=== PATIENT | male | born 1955 ===

== ENCOUNTER 2020-12-05 08:37 | Inpatient (IN) ==
[2020-12-05] MEDS ORDERED: Dextrose 50% Syringe 50 ml 25 GM/50 ML SYRINGE IV PUSH PRN (14:26)
[2020-12-05] MEDS: Amoxicillin/Clavul ORALSYR 80 MG/ML (400 MG/5 ML) G TUBE SCH (20:50)
[2020-12-05] MEDS: Nystatin SUSPENSION 100,000 UNITS/ML UDC PO SCH (21:06)
[2020-12-06 05:53] LABS: ABS Eosinophils 0.1 10^3/ul (0-0.6); ABS Lymphocytes 2.2 10^3/ul (1.0-4.8); ABS Monocytes 1.2 10^3/ul (0-0.8); ABS Neutrophils 5.1 10^3/ul (1.5-7.7); Eosinophil % 1.2 %; Hematocrit 42 % (42-52); Hemoglobin 14.1 g/dL (14.0-18.0); Lymphocyte % 25.2 %; Mean Corpuscular HGB Conc 33 g/dL (31-36); Mean Corpuscular Hemoglobin 31 pg (27-31); Mean Corpuscular Volume 94 fL (80-94); Mean Platelet Volume 8.1 fL (7.4-10.4); Platelet Count 258 10^3/uL (150-450); Red Blood Count 4.54 10^6 /uL (4.18-5.48); Red Cell Distribution Width 15 % (10-15); White Blood Count 8.7 10^3/uL (3.5-10.8)
[2020-12-06 06:08] LABS: Albumin 3.4 g/dL (3.2-5.2); Albumin/Globulin Ratio 0.8 (1-3); Calcium 9.3 mg/dL (8.6-10.3); EGFR African American 75.2 (>60); EGFR Non-African American 62.1 (>60); Globulin 4.3 g/dL (2-4); Potassium 4.4 mmol/L (3.5-5.0); Total Bilirubin 0.3 mg/dL (0.2-1.0); Total Protein 7.7 g/dL (6.4-8.9)
[2020-12-06] MEDS: Nystatin SUSPENSION 100,000 UNITS/ML UDC PO SCH ×4 (09:29→22:39)
[2020-12-06] MEDS: Amoxicillin/Clavul ORALSYR 80 MG/ML (400 MG/5 ML) G TUBE SCH ×2 (09:33→22:39)
[2020-12-06] MEDS: COBICISTAT PO SCH (14:51)
[2020-12-06] MEDS: DARUNAVIR PO SCH (14:51)
[2020-12-06] MEDS: PTO: Bictegravir/Emtricit/Tenofov 1 TABLET PO SCH (14:51)
[2020-12-06] MEDS: Heparin 5000 UNITS/ML 1 mL VIAL SUBCUT SCH (22:39)
[2020-12-07] MEDS: Nystatin SUSPENSION 100,000 UNITS/ML UDC PO SCH ×4 (07:30→22:13)
[2020-12-07] MEDS: PTO: Bictegravir/Emtricit/Tenofov 1 TABLET PO SCH (07:32)
[2020-12-07] MEDS: COBICISTAT PO SCH (07:33)
[2020-12-07] MEDS: DARUNAVIR PO SCH (07:33)
[2020-12-07] MEDS: Amoxicillin/Clavul ORALSYR 80 MG/ML (400 MG/5 ML) G TUBE SCH ×2 (07:38→20:09)
[2020-12-07] MEDS: Heparin 5000 UNITS/ML 1 mL VIAL SUBCUT SCH ×2 (07:38→20:19)
[2020-12-08] MEDS: Heparin 5000 UNITS/ML 1 mL VIAL SUBCUT SCH ×2 (08:46→21:21)
[2020-12-08] MEDS: Nystatin SUSPENSION 100,000 UNITS/ML UDC PO SCH ×4 (08:46→22:01)
[2020-12-08] MEDS: COBICISTAT PO SCH (08:54)
[2020-12-08] MEDS: Amoxicillin/Clavul ORALSYR 80 MG/ML (400 MG/5 ML) G TUBE SCH ×2 (08:54→21:52)
[2020-12-08] MEDS: PTO: Bictegravir/Emtricit/Tenofov 1 TABLET PO SCH (08:54)
[2020-12-08] MEDS: DARUNAVIR PO SCH (08:54)
[2020-12-09] MEDS: Heparin 5000 UNITS/ML 1 mL VIAL SUBCUT SCH ×2 (09:16→20:46)
[2020-12-09] MEDS: Nicotine PATCH 14 MG/24 HR PATCH TRANSDERM SCH (09:16)
[2020-12-09] MEDS: Amoxicillin/Clavul ORALSYR 80 MG/ML (400 MG/5 ML) G TUBE SCH ×2 (09:17→20:50)
[2020-12-09] MEDS: Nystatin SUSPENSION 100,000 UNITS/ML UDC PO SCH ×4 (09:18→20:53)
[2020-12-09] MEDS: PTO: Bictegravir/Emtricit/Tenofov 1 TABLET PO SCH (09:40)
[2020-12-09] MEDS: COBICISTAT PO SCH (09:40)
[2020-12-09] MEDS: DARUNAVIR PO SCH (09:40)
[2020-12-10] MEDS: Heparin 5000 UNITS/ML 1 mL VIAL SUBCUT SCH ×2 (09:47→21:05)
[2020-12-10] MEDS: Amoxicillin/Clavul ORALSYR 80 MG/ML (400 MG/5 ML) G TUBE SCH ×2 (09:47→21:07)
[2020-12-10] MEDS: Nicotine PATCH 14 MG/24 HR PATCH TRANSDERM SCH (09:47)
[2020-12-10] MEDS: COBICISTAT PO SCH (09:48)
[2020-12-10] MEDS: PTO: Bictegravir/Emtricit/Tenofov 1 TABLET PO SCH (09:48)
[2020-12-10] MEDS: Nystatin SUSPENSION 100,000 UNITS/ML UDC PO SCH ×4 (09:48→21:20)
[2020-12-10] MEDS: DARUNAVIR PO SCH (09:48)
[2020-12-11] MEDS: Heparin 5000 UNITS/ML 1 mL VIAL SUBCUT SCH ×2 (09:46→20:57)
[2020-12-11] MEDS: Nystatin SUSPENSION 100,000 UNITS/ML UDC PO SCH ×4 (09:46→21:01)
[2020-12-11] MEDS: Nicotine PATCH 14 MG/24 HR PATCH TRANSDERM SCH (09:47)
[2020-12-11] MEDS: Amoxicillin/Clavul ORALSYR 80 MG/ML (400 MG/5 ML) G TUBE SCH ×2 (09:52→20:51)
[2020-12-11] MEDS: DARUNAVIR PO SCH (10:49)
[2020-12-11] MEDS: COBICISTAT PO SCH (10:49)
[2020-12-11] MEDS: PTO: Bictegravir/Emtricit/Tenofov 1 TABLET PO SCH (10:49)
[2020-12-12] MEDS: Heparin 5000 UNITS/ML 1 mL VIAL SUBCUT SCH ×2 (09:26→21:27)
[2020-12-12] MEDS: Nystatin SUSPENSION 100,000 UNITS/ML UDC PO SCH ×3 (09:26→18:00)
[2020-12-12] MEDS: Nicotine PATCH 14 MG/24 HR PATCH TRANSDERM SCH (09:26)
[2020-12-12] MEDS: Amoxicillin/Clavul ORALSYR 80 MG/ML (400 MG/5 ML) G TUBE SCH ×2 (09:28→21:27)
[2020-12-12] MEDS: COBICISTAT PO SCH (09:29)
[2020-12-12] MEDS: DARUNAVIR PO SCH (09:29)
[2020-12-12] MEDS: PTO: Bictegravir/Emtricit/Tenofov 1 TABLET PO SCH (09:29)
[2020-12-13 07:02] LABS: ABS Basophils 0.1 10^3/ul (0-0.2); ABS Eosinophils 0.2 10^3/ul (0-0.6); ABS Lymphocytes 2.5 10^3/ul (1.0-4.8); ABS Neutrophils 3.5 10^3/ul (1.5-7.7); Eosinophil % 2.2 %; Hematocrit 42 % (42-52); Hemoglobin 14.2 g/dL (14.0-18.0); Lymphocyte % 34.5 %; Mean Corpuscular HGB Conc 34 g/dL (31-36); Mean Corpuscular Hemoglobin 31 pg (27-31); Mean Corpuscular Volume 93 fL (80-94); Mean Platelet Volume 8.4 fL (7.4-10.4); Platelet Count 245 10^3/uL (150-450); Red Blood Count 4.53 10^6 /uL (4.18-5.48); Red Cell Distribution Width 15 % (10-15); White Blood Count 7.2 10^3/uL (3.5-10.8)
[2020-12-13 07:19] LABS: Albumin 3.5 g/dL (3.2-5.2); Albumin/Globulin Ratio 0.9 (1-3); Calcium 9.8 mg/dL (8.6-10.3); EGFR African American 104.1 (>60); EGFR Non-African American 86.1 (>60); Potassium 4.4 mmol/L (3.5-5.0); Total Bilirubin 0.3 mg/dL (0.2-1.0); Total Protein 7.5 g/dL (6.4-8.9)
[2020-12-13] MEDS: PTO: Bictegravir/Emtricit/Tenofov 1 TABLET PO SCH (09:13)
[2020-12-13] MEDS: COBICISTAT PO SCH (09:14)
[2020-12-13] MEDS: Heparin 5000 UNITS/ML 1 mL VIAL SUBCUT SCH ×2 (09:14→20:59)
[2020-12-13] MEDS: DARUNAVIR PO SCH (09:14)
[2020-12-13] MEDS: Nicotine PATCH 14 MG/24 HR PATCH TRANSDERM SCH (09:15)
[2020-12-13] MEDS: Docusate LIQ 100 MG/10 ML UDC G TUBE PRN (09:18)
[2020-12-14] MEDS: Nicotine PATCH 14 MG/24 HR PATCH TRANSDERM SCH (09:41)
[2020-12-14] MEDS: Heparin 5000 UNITS/ML 1 mL VIAL SUBCUT SCH ×2 (09:42→21:19)
[2020-12-14] MEDS: DARUNAVIR PO SCH (09:49)
[2020-12-14] MEDS: COBICISTAT PO SCH (09:49)
[2020-12-14] MEDS: PTO: Bictegravir/Emtricit/Tenofov 1 TABLET PO SCH (09:49)
[2020-12-14] MEDS: Docusate LIQ 100 MG/10 ML UDC G TUBE PRN (21:13)
[2020-12-15] MEDS: Heparin 5000 UNITS/ML 1 mL VIAL SUBCUT SCH ×2 (08:14→21:59)
[2020-12-15] MEDS: Nicotine PATCH 14 MG/24 HR PATCH TRANSDERM SCH (08:16)
[2020-12-15] MEDS: COBICISTAT PO SCH (08:18)
[2020-12-15] MEDS: DARUNAVIR PO SCH (08:18)
[2020-12-15] MEDS: PTO: Bictegravir/Emtricit/Tenofov 1 TABLET PO SCH (08:18)
[2020-12-15] MEDS: Docusate LIQ 100 MG/10 ML UDC G TUBE PRN (22:04)
[2020-12-16] MEDS: Nicotine PATCH 14 MG/24 HR PATCH TRANSDERM SCH (10:00)
[2020-12-16] MEDS: Heparin 5000 UNITS/ML 1 mL VIAL SUBCUT SCH ×2 (10:00→20:20)
[2020-12-16] MEDS: COBICISTAT PO SCH (10:01)
[2020-12-16] MEDS: DARUNAVIR PO SCH (10:01)
[2020-12-16] MEDS: PTO: Bictegravir/Emtricit/Tenofov 1 TABLET PO SCH (10:01)
[2020-12-16] MEDS: Docusate LIQ 100 MG/10 ML UDC G TUBE PRN (20:16)
[2020-12-17] MEDS: PTO: Bictegravir/Emtricit/Tenofov 1 TABLET PO SCH (09:30)
[2020-12-17] MEDS: COBICISTAT PO SCH (09:30)
[2020-12-17] MEDS: DARUNAVIR PO SCH (09:30)
[2020-12-17] MEDS: Nicotine PATCH 14 MG/24 HR PATCH TRANSDERM SCH (09:31)
[2020-12-17] MEDS: Heparin 5000 UNITS/ML 1 mL VIAL SUBCUT SCH ×2 (09:34→21:04)
[2020-12-18] MEDS: DARUNAVIR PO SCH (11:22)
[2020-12-18] MEDS: Nicotine PATCH 14 MG/24 HR PATCH TRANSDERM SCH (11:22)
[2020-12-18] MEDS: COBICISTAT PO SCH (11:22)
[2020-12-18] MEDS: Heparin 5000 UNITS/ML 1 mL VIAL SUBCUT SCH ×2 (11:22→20:44)
[2020-12-18] MEDS: PTO: Bictegravir/Emtricit/Tenofov 1 TABLET PO SCH (11:22)
[2020-12-19] MEDS: COBICISTAT PO SCH (11:48)
[2020-12-19] MEDS: PTO: Bictegravir/Emtricit/Tenofov 1 TABLET PO SCH (11:48)
[2020-12-19] MEDS: Heparin 5000 UNITS/ML 1 mL VIAL SUBCUT SCH ×2 (11:48→21:09)
[2020-12-19] MEDS: DARUNAVIR PO SCH (11:48)
[2020-12-19] MEDS: Nicotine PATCH 14 MG/24 HR PATCH TRANSDERM SCH (11:49)
[2020-12-20 06:06] LABS: ABS Basophils 0.1 10^3/ul (0-0.2); ABS Eosinophils 0.2 10^3/ul (0-0.6); ABS Lymphocytes 2.3 10^3/ul (1.0-4.8); ABS Monocytes 0.9 10^3/ul (0-0.8); ABS Neutrophils 3.3 10^3/ul (1.5-7.7); Eosinophil % 2.4 %; Hematocrit 41 % (42-52); Hemoglobin 13.4 g/dL (14.0-18.0); Lymphocyte % 33.9 %; Mean Corpuscular HGB Conc 33 g/dL (31-36); Mean Corpuscular Hemoglobin 31 pg (27-31); Mean Corpuscular Volume 94 fL (80-94); Mean Platelet Volume 8.5 fL (7.4-10.4); Platelet Count 206 10^3/uL (150-450); Red Blood Count 4.32 10^6 /uL (4.18-5.48); Red Cell Distribution Width 15 % (10-15); White Blood Count 6.8 10^3/uL (3.5-10.8)
[2020-12-20 06:26] LABS: Albumin 3.6 g/dL (3.2-5.2); Calcium 9.8 mg/dL (8.6-10.3); EGFR African American 96.6 (>60); EGFR Non-African American 79.8 (>60); Globulin 3.5 g/dL (2-4); Potassium 4.4 mmol/L (3.5-5.0); Total Bilirubin 0.3 mg/dL (0.2-1.0); Total Protein 7.1 g/dL (6.4-8.9)
[2020-12-20] MEDS: Heparin 5000 UNITS/ML 1 mL VIAL SUBCUT SCH ×2 (09:28→21:36)
[2020-12-20] MEDS: Nicotine PATCH 14 MG/24 HR PATCH TRANSDERM SCH (09:29)
[2020-12-20] MEDS: COBICISTAT PO SCH (09:32)
[2020-12-20] MEDS: PTO: Bictegravir/Emtricit/Tenofov 1 TABLET PO SCH (09:32)
[2020-12-20] MEDS: DARUNAVIR PO SCH (09:32)
[2020-12-20] MEDS: Docusate LIQ 100 MG/10 ML UDC G TUBE PRN (21:36)
[2020-12-21] MEDS: Heparin 5000 UNITS/ML 1 mL VIAL SUBCUT SCH ×2 (10:20→21:44)
[2020-12-21] MEDS: PTO: Bictegravir/Emtricit/Tenofov 1 TABLET PO SCH (10:20)
[2020-12-21] MEDS: DARUNAVIR PO SCH (10:21)
[2020-12-21] MEDS: COBICISTAT PO SCH (10:21)
[2020-12-21] MEDS: Nicotine PATCH 14 MG/24 HR PATCH TRANSDERM SCH (10:21)
[2020-12-21] MEDS: Docusate LIQ 100 MG/10 ML UDC G TUBE PRN (21:46)
[2020-12-22] MEDS: PTO: Bictegravir/Emtricit/Tenofov 1 TABLET PO SCH (10:23)
[2020-12-22] MEDS: DARUNAVIR PO SCH (10:23)
[2020-12-22] MEDS: COBICISTAT PO SCH (10:23)
[2020-12-22] MEDS: Nicotine PATCH 14 MG/24 HR PATCH TRANSDERM SCH (10:23)
[2020-12-22] MEDS: Heparin 5000 UNITS/ML 1 mL VIAL SUBCUT SCH ×2 (10:23→21:30)
[2020-12-23] MEDS: PTO: Bictegravir/Emtricit/Tenofov 1 TABLET PO SCH (09:17)
[2020-12-23] MEDS: COBICISTAT PO SCH (09:17)
[2020-12-23] MEDS: DARUNAVIR PO SCH (09:17)
[2020-12-23] MEDS: Heparin 5000 UNITS/ML 1 mL VIAL SUBCUT SCH ×2 (09:17→20:46)
[2020-12-23] MEDS: Nicotine PATCH 14 MG/24 HR PATCH TRANSDERM SCH (09:18)
[2020-12-24] MEDS: DARUNAVIR PO SCH (11:26)
[2020-12-24] MEDS: PTO: Bictegravir/Emtricit/Tenofov 1 TABLET PO SCH (11:26)
[2020-12-24] MEDS: COBICISTAT PO SCH (11:26)
[2020-12-24] MEDS: Heparin 5000 UNITS/ML 1 mL VIAL SUBCUT SCH ×2 (11:26→21:25)
[2020-12-24] MEDS: Nicotine PATCH 14 MG/24 HR PATCH TRANSDERM SCH (11:27)
[2020-12-24] MEDS: Ondansetron ODT 4 mg TAB 4 MG TAB PO PRN (19:48)
[2020-12-25] MEDS: COBICISTAT PO SCH (10:26)
[2020-12-25] MEDS: Heparin 5000 UNITS/ML 1 mL VIAL SUBCUT SCH ×2 (10:26→21:20)
[2020-12-25] MEDS: DARUNAVIR PO SCH (10:26)
[2020-12-25] MEDS: PTO: Bictegravir/Emtricit/Tenofov 1 TABLET PO SCH (10:26)
[2020-12-25] MEDS: Nicotine PATCH 14 MG/24 HR PATCH TRANSDERM SCH (10:28)
[2020-12-26] MEDS: COBICISTAT PO SCH (09:48)
[2020-12-26] MEDS: Heparin 5000 UNITS/ML 1 mL VIAL SUBCUT SCH ×2 (09:48→20:58)
[2020-12-26] MEDS: DARUNAVIR PO SCH (09:48)
[2020-12-26] MEDS: Nicotine PATCH 14 MG/24 HR PATCH TRANSDERM SCH (09:48)
[2020-12-26] MEDS: PTO: Bictegravir/Emtricit/Tenofov 1 TABLET PO SCH (09:48)
[2020-12-26] MEDS: Ondansetron ODT 4 mg TAB 4 MG TAB PO PRN (14:14)
[2020-12-27 06:37] LABS: ABS Eosinophils 0.2 10^3/ul (0-0.6); ABS Neutrophils 4.4 10^3/ul (1.5-7.7); Eosinophil % 2.5 %; Hematocrit 38 % (42-52); Hemoglobin 12.7 g/dL (14.0-18.0); Lymphocyte % 26.3 %; Mean Corpuscular HGB Conc 34 g/dL (31-36); Mean Corpuscular Hemoglobin 32 pg (27-31); Mean Corpuscular Volume 93 fL (80-94); Mean Platelet Volume 8.4 fL (7.4-10.4); Platelet Count 177 10^3/uL (150-450); Red Blood Count 4.03 10^6 /uL (4.18-5.48); Red Cell Distribution Width 16 % (10-15); White Blood Count 7.6 10^3/uL (3.5-10.8)
[2020-12-27 07:04] LABS: Albumin 3.3 g/dL (3.2-5.2); Albumin/Globulin Ratio 0.9 (1-3); Calcium 9.5 mg/dL (8.6-10.3); EGFR African American 112.9 (>60); EGFR Non-African American 93.3 (>60); Globulin 3.7 g/dL (2-4); Potassium 4.6 mmol/L (3.5-5.0); Total Bilirubin 0.3 mg/dL (0.2-1.0)
[2020-12-27] MEDS: Heparin 5000 UNITS/ML 1 mL VIAL SUBCUT SCH (10:55)
[2020-12-27] MEDS: Nicotine PATCH 14 MG/24 HR PATCH TRANSDERM SCH (10:55)
[2020-12-27] MEDS: COBICISTAT PO SCH (10:55)
[2020-12-27] MEDS: PTO: Bictegravir/Emtricit/Tenofov 1 TABLET PO SCH (10:55)
[2020-12-27] MEDS: DARUNAVIR PO SCH (10:55)
[2020-12-27] MEDS ORDERED: NS 0.9% 1000 ml BAG 1,000 ML IV ONE ×2 (15:35→18:03)
[2020-12-27] MEDS ORDERED: Piperacillin/Tazobac ADVAN 3.375 GM in NS 0.9% 100 ml BAG 100 ML IV ONE (15:36)
[2020-12-27] MEDS ORDERED: Zosyn per Pharmacy NOTE FOLLOW UP SCH (16:00)
[2020-12-27 16:04] LABS: ABS Lymphocytes 0.7 10^3/ul (1.0-4.8); ABS Monocytes 1.1 10^3/ul (0-0.8); ABS Neutrophils 10.7 10^3/ul (1.5-7.7); Eosinophil % 0.2 %; Hematocrit 38 % (42-52); Hemoglobin 12.7 g/dL (14.0-18.0); Lymphocyte % 5.7 %; Mean Corpuscular HGB Conc 34 g/dL (31-36); Mean Corpuscular Hemoglobin 31 pg (27-31); Mean Corpuscular Volume 93 fL (80-94); Mean Platelet Volume 8.2 fL (7.4-10.4); Platelet Count 181 10^3/uL (150-450); Red Blood Count 4.06 10^6 /uL (4.18-5.48); Red Cell Distribution Width 15 % (10-15); White Blood Count 12.5 10^3/uL (3.5-10.8)
[2020-12-27 16:30] VITALS: BP 151/77
[2020-12-27 16:32] LABS: Albumin 3.7 g/dL (3.2-5.2); Albumin/Globulin Ratio 0.9 (1-3); Calcium 9.7 mg/dL (8.6-10.3); EGFR Non-African American 81.8 (>60); Magnesium 1.6 mg/dL (1.9-2.7); Phosphorus 1.6 mg/dL (2.5-5.0); Potassium 4.5 mmol/L (3.5-5.0); Total Bilirubin 0.5 mg/dL (0.2-1.0); Total Protein 7.7 g/dL (6.4-8.9)
[2020-12-27 17:05] LABS: Urine Appearance Clear; Urine Bilirubin Negative (Negative); Urine Blood 1+ (Negative); Urine Color Yellow; Urine Glucose Negative (Negative); Urine Ketones Negative (Negative); Urine Nitrite Negative (Negative); Urine Protein Negative (Negative); Urine Specific Gravity 1.016 (1.002-1.030); Urine Urobilinogen Negative (Negative)
[2020-12-27 17:52] LABS: Urine Bacteria Absent (Absent); Urine Red Blood Cell Trace(0-2/hpf) (Absent); Urine White Blood Cell Absent (Absent)
[2020-12-27] MEDS ORDERED: Magnesium Sulfate 2 gm BAG 2 GM/50 ML BAG IVPB ONE (18:02)
[2020-12-27] MEDS ORDERED: NS 0.9% 1000 ml BAG 1,000 ML IV SCH ×2 (18:15→18:30)
[2020-12-27] MEDS ORDERED: Potassium Phosphate IV 15 MMOLE in NS 0.9% 250 ml 250 ML IVPB ONE (18:30)
[2020-12-27] MEDS ORDERED: ZOSYN 3.375 GM Q8H per EXTENDED INFUSION IV SCH (20:00)
== END 2020-12-27 18:31 | disposition short-term general hospital (02) | DRG 58 ==
LOC: PMRU 13:21 → MEDTELE 12-27 17:35
PROVIDERS: ADMIT Physical Medicine & Rehabilitation; ATTEND Physical Medicine & Rehabilitation

== ENCOUNTER 2020-12-27 18:23 | Inpatient (IN) ==
[2020-12-27] MEDS ORDERED: NS 0.9% 1000 ml BAG 1,000 ML IV ONE (18:40)
[2020-12-27] MEDS ORDERED: Zosyn per Pharmacy NOTE FOLLOW UP SCH (19:00)
[2020-12-27] MEDS ORDERED: Docusate LIQ 100 MG/10 ML UDC G TUBE PRN (19:15)
[2020-12-27] MEDS ORDERED: Ondansetron 4 mg VIAL 2 MG/ML 2 ml VIAL IV PRN (19:18)
[2020-12-27] MEDS ORDERED: Albuterol 2.5mg/3 ml (0.083%) NEB.SOLN INH PRN (19:19)
[2020-12-27] MEDS ORDERED: Magnesium Sulfate 2 gm BAG 2 GM/50 ML BAG IVPB ONE (19:20)
[2020-12-27] MEDS ORDERED: Potassium Phosphate IV 15 MMOLE in NS 0.9% 250 ml 250 ML IVPB ONE (19:20)
[2020-12-27] MEDS ORDERED: Dextrose 50% Syringe 50 ml 25 GM/50 ML SYRINGE IV PUSH PRN (19:22)
[2020-12-27] MEDS ORDERED: Vancomycin 1,000 MG in NS 0.9% 250 ml 250 ML IVPB ONE (19:57)
[2020-12-27] MEDS ORDERED: Vancomycin per Pharmacy 1 EA NOTE FOLLOW UP SCH (20:00)
[2020-12-27] MEDS: Heparin 5000 UNITS/ML 1 mL VIAL SUBCUT SCH (20:27)
[2020-12-27] MEDS ORDERED: Vancomycin 1,250 MG IV x ONCE IVPB ONE (21:00)
[2020-12-27] MEDS: NS 0.9% 1000 ml BAG 1,000 ML IV SCH (22:21)
[2020-12-27] MEDS: Piperacillin/Tazobac ADVAN 3.375 GM in NS 0.9% 100 ml BAG 100 ML IV SCH (22:38)
[2020-12-28] MEDS: Piperacillin/Tazobac ADVAN 3.375 GM in NS 0.9% 100 ml BAG 100 ML IV SCH ×3 (04:08→21:38)
[2020-12-28] MEDS: Vancomycin 1,250 MG in NS 0.9% 250 ml 250 ML IVPB SCH ×2 (06:07→18:17)
[2020-12-28 06:52] LABS: ABS Basophils 0.1 10^3/ul (0-0.2); ABS Eosinophils 0.1 10^3/ul (0-0.6); ABS Lymphocytes 2.7 10^3/ul (1.0-4.8); ABS Monocytes 1.1 10^3/ul (0-0.8); ABS Neutrophils 11.7 10^3/ul (1.5-7.7); Eosinophil % 0.6 %; Hematocrit 36 % (42-52); Hemoglobin 12.2 g/dL (14.0-18.0); Lymphocyte % 17.3 %; Mean Corpuscular HGB Conc 34 g/dL (31-36); Mean Corpuscular Hemoglobin 31 pg (27-31); Mean Corpuscular Volume 93 fL (80-94); Mean Platelet Volume 8.5 fL (7.4-10.4); Platelet Count 166 10^3/uL (150-450); Red Cell Distribution Width 16 % (10-15); White Blood Count 15.8 10^3/uL (3.5-10.8)
[2020-12-28 07:17] LABS: Albumin 3.3 g/dL (3.2-5.2); Albumin/Globulin Ratio 0.9 (1-3); Calcium 9.2 mg/dL (8.6-10.3); EGFR African American 121.3 (>60); EGFR Non-African American 100.2 (>60); Globulin 3.8 g/dL (2-4); Magnesium 2.1 mg/dL (1.9-2.7); Phosphorus 3.6 mg/dL (2.5-5.0); Potassium 4.4 mmol/L (3.5-5.0); Total Bilirubin 0.9 mg/dL (0.2-1.0); Total Protein 7.1 g/dL (6.4-8.9)
[2020-12-28] MEDS: PTO: Bictegravir/Emtricit/Tenofov 1 TABLET PO SCH (09:37)
[2020-12-28] MEDS: COBICISTAT PO SCH (09:38)
[2020-12-28] MEDS: DARUNAVIR PO SCH (09:38)
[2020-12-28] MEDS: Nicotine PATCH 14 MG/24 HR PATCH TRANSDERM SCH (09:39)
[2020-12-28] MEDS: Heparin 5000 UNITS/ML 1 mL VIAL SUBCUT SCH ×2 (09:39→21:43)
[2020-12-28] MEDS ORDERED: Polyethylene Glycol 3350 17 GM PACKET PEG TUBE ONE (09:47)
[2020-12-28] MEDS ORDERED: Polyethylene Glycol 3350 17 GM PACKET ONE (09:51)
[2020-12-28] MEDS: NS 0.9% 1000 ml BAG 1,000 ML IV SCH (18:17)
[2020-12-29] MEDS: Piperacillin/Tazobac ADVAN 3.375 GM in NS 0.9% 100 ml BAG 100 ML IV SCH ×3 (04:26→21:16)
[2020-12-29] MEDS ORDERED: Vancomycin Trough Check NOTE FOLLOW UP ONE (06:00)
[2020-12-29 06:37] LABS: ABS Basophils 0.1 10^3/ul (0-0.2); ABS Eosinophils 0.1 10^3/ul (0-0.6); ABS Lymphocytes 2.2 10^3/ul (1.0-4.8); Eosinophil % 1.8 %; Hematocrit 36 % (42-52); Hemoglobin 11.9 g/dL (14.0-18.0); Lymphocyte % 25.7 %; Mean Corpuscular HGB Conc 33 g/dL (31-36); Mean Corpuscular Hemoglobin 31 pg (27-31); Mean Corpuscular Volume 93 fL (80-94); Mean Platelet Volume 8.1 fL (7.4-10.4); Platelet Count 173 10^3/uL (150-450); Red Blood Count 3.84 10^6 /uL (4.18-5.48); Red Cell Distribution Width 15 % (10-15); White Blood Count 8.4 10^3/uL (3.5-10.8)
[2020-12-29 06:52] LABS: Vancomycin Trough 11.2 mcg/mL
[2020-12-29 06:53] LABS: EGFR African American 116.1 (>60); EGFR Non-African American 95.9 (>60); Magnesium 1.9 mg/dL (1.9-2.7); Potassium 4.1 mmol/L (3.5-5.0)
[2020-12-29] MEDS: Vancomycin 1,250 MG in NS 0.9% 250 ml 250 ML IVPB SCH (08:05)
[2020-12-29] MEDS: PTO: Bictegravir/Emtricit/Tenofov 1 TABLET PO SCH (10:11)
[2020-12-29] MEDS: COBICISTAT PO SCH (10:11)
[2020-12-29] MEDS: DARUNAVIR PO SCH (10:11)
[2020-12-29] MEDS: Heparin 5000 UNITS/ML 1 mL VIAL SUBCUT SCH ×2 (10:12→21:18)
[2020-12-29] MEDS: Nicotine PATCH 14 MG/24 HR PATCH TRANSDERM SCH (10:12)
[2020-12-29] MEDS: D5W 1/2 NS 1000 ml BAG 1,000 ML IV SCH (13:32)
[2020-12-30] MEDS: D5W 1/2 NS 1000 ml BAG 1,000 ML IV SCH (02:52)
[2020-12-30] MEDS: Piperacillin/Tazobac ADVAN 3.375 GM in NS 0.9% 100 ml BAG 100 ML IV SCH (05:08)
[2020-12-30 06:33] LABS: Hematocrit 40 % (42-52); Mean Corpuscular HGB Conc 33 g/dL (31-36); Mean Corpuscular Hemoglobin 31 pg (27-31); Mean Corpuscular Volume 94 fL (80-94); Mean Platelet Volume 8.2 fL (7.4-10.4); Platelet Count 182 10^3/uL (150-450); Red Blood Count 4.22 10^6 /uL (4.18-5.48); Red Cell Distribution Width 15 % (10-15); White Blood Count 6.6 10^3/uL (3.5-10.8)
[2020-12-30 06:51] LABS: Calcium 9.3 mg/dL (8.6-10.3); EGFR African American 101.5 (>60); EGFR Non-African American 83.9 (>60); Magnesium 1.9 mg/dL (1.9-2.7); Phosphorus 3.6 mg/dL (2.5-5.0); Potassium 4.1 mmol/L (3.5-5.0)
[2020-12-30] MEDS: Heparin 5000 UNITS/ML 1 mL VIAL SUBCUT SCH ×2 (09:32→20:39)
[2020-12-30] MEDS: COBICISTAT PO SCH (09:34)
[2020-12-30] MEDS: Nicotine PATCH 14 MG/24 HR PATCH TRANSDERM SCH (09:34)
[2020-12-30] MEDS: DARUNAVIR PO SCH (09:34)
[2020-12-30] MEDS: PTO: Bictegravir/Emtricit/Tenofov 1 TABLET PO SCH (09:34)
[2020-12-30] MEDS ORDERED: Amoxicillin/Clavul 875/125 TAB (Augmentin 875 tab) PO SCH (13:00)
[2020-12-30] MEDS: Amoxicillin/Clavul ORALSYR 80 MG/ML (400 MG/5 ML) PO SCH ×2 (15:10→20:40)
[2020-12-31 06:10] LABS: Hematocrit 40 % (42-52); Hemoglobin 13.4 g/dL (14.0-18.0); Mean Corpuscular HGB Conc 33 g/dL (31-36); Mean Corpuscular Hemoglobin 31 pg (27-31); Mean Corpuscular Volume 93 fL (80-94); Mean Platelet Volume 7.7 fL (7.4-10.4); Platelet Count 201 10^3/uL (150-450); Red Blood Count 4.33 10^6 /uL (4.18-5.48); Red Cell Distribution Width 15 % (10-15); White Blood Count 6.3 10^3/uL (3.5-10.8)
[2020-12-31 06:28] LABS: Calcium 9.4 mg/dL (8.6-10.3); EGFR African American 101.5 (>60); EGFR Non-African American 83.9 (>60); Magnesium 1.9 mg/dL (1.9-2.7); Phosphorus 3.5 mg/dL (2.5-5.0)
[2020-12-31] MEDS: Nicotine PATCH 14 MG/24 HR PATCH TRANSDERM SCH (09:41)
[2020-12-31] MEDS: Heparin 5000 UNITS/ML 1 mL VIAL SUBCUT SCH (09:42)
[2020-12-31] MEDS: Amoxicillin/Clavul ORALSYR 80 MG/ML (400 MG/5 ML) PO SCH (09:52)
[2020-12-31] MEDS: COBICISTAT PO SCH (09:52)
[2020-12-31] MEDS: DARUNAVIR PO SCH (09:52)
[2020-12-31] MEDS: PTO: Bictegravir/Emtricit/Tenofov 1 TABLET PO SCH (09:54)
[2020-12-31 11:23] VITALS: BP 117/72
== END 2020-12-31 13:30 | DRG 720 ==
LOC: MEDTELE 18:31
PROVIDERS: ADMIT Internal Medicine; ATTEND Student in an Organized Health Care Education/Training Program

== ENCOUNTER 2020-12-31 13:36 | Inpatient (IN) ==
[2020-12-31] MEDS: Heparin 5000 UNITS/ML 1 mL VIAL SUBCUT SCH (21:19)
[2020-12-31] MEDS: Amoxicillin/Clavul ORALSYR 80 MG/ML (400 MG/5 ML) G TUBE SCH (21:19)
[2021-01-01 07:18] LABS: ABS Basophils 0.1 10^3/ul (0-0.2); ABS Eosinophils 0.1 10^3/ul (0-0.6); ABS Lymphocytes 1.9 10^3/ul (1.0-4.8); ABS Monocytes 0.8 10^3/ul (0-0.8); ABS Neutrophils 4.7 10^3/ul (1.5-7.7); Eosinophil % 1.7 %; Hematocrit 37 % (42-52); Hemoglobin 12.8 g/dL (14.0-18.0); Lymphocyte % 24.6 %; Mean Corpuscular HGB Conc 34 g/dL (31-36); Mean Corpuscular Hemoglobin 32 pg (27-31); Mean Corpuscular Volume 92 fL (80-94); Platelet Count 197 10^3/uL (150-450); Red Blood Count 4.04 10^6 /uL (4.18-5.48); Red Cell Distribution Width 15 % (10-15); White Blood Count 7.6 10^3/uL (3.5-10.8)
[2021-01-01 07:36] LABS: Albumin 3.4 g/dL (3.2-5.2); Albumin/Globulin Ratio 0.9 (1-3); Calcium 9.3 mg/dL (8.6-10.3); EGFR African American 97.8 (>60); EGFR Non-African American 80.8 (>60); Globulin 3.9 g/dL (2-4); Potassium 4.1 mmol/L (3.5-5.0); Total Bilirubin 0.3 mg/dL (0.2-1.0); Total Protein 7.3 g/dL (6.4-8.9)
[2021-01-01] MEDS: DARUNAVIR PO SCH (07:44)
[2021-01-01] MEDS: COBICISTAT PO SCH (07:44)
[2021-01-01] MEDS: Bictegravir/Emtricit/Tenofov 1 TABLET PO SCH (07:44)
[2021-01-01] MEDS: Heparin 5000 UNITS/ML 1 mL VIAL SUBCUT SCH ×2 (07:45→21:21)
[2021-01-01] MEDS: Amoxicillin/Clavul ORALSYR 80 MG/ML (400 MG/5 ML) G TUBE SCH ×2 (10:00→21:21)
[2021-01-02] MEDS: Heparin 5000 UNITS/ML 1 mL VIAL SUBCUT SCH ×2 (07:44→21:20)
[2021-01-02] MEDS: Bictegravir/Emtricit/Tenofov 1 TABLET PO SCH (07:44)
[2021-01-02] MEDS: COBICISTAT PO SCH (07:44)
[2021-01-02] MEDS: DARUNAVIR PO SCH (07:44)
[2021-01-02] MEDS: Amoxicillin/Clavul ORALSYR 80 MG/ML (400 MG/5 ML) G TUBE SCH ×2 (08:40→21:13)
[2021-01-03] MEDS: DARUNAVIR PO SCH (08:10)
[2021-01-03] MEDS: COBICISTAT PO SCH (08:10)
[2021-01-03] MEDS: Bictegravir/Emtricit/Tenofov 1 TABLET PO SCH (08:10)
[2021-01-03] MEDS: Heparin 5000 UNITS/ML 1 mL VIAL SUBCUT SCH ×2 (08:11→21:39)
[2021-01-03] MEDS: Amoxicillin/Clavul ORALSYR 80 MG/ML (400 MG/5 ML) G TUBE SCH (08:14)
[2021-01-03 14:27] LABS: ABS Basophils 0.1 10^3/ul (0-0.2); ABS Lymphocytes 1.5 10^3/ul (1.0-4.8); ABS Monocytes 1.2 10^3/ul (0-0.8); ABS Neutrophils 14.7 10^3/ul (1.5-7.7); Eosinophil % 0.2 %; Hematocrit 39 % (42-52); Lymphocyte % 8.7 %; Mean Corpuscular HGB Conc 33 g/dL (31-36); Mean Corpuscular Hemoglobin 31 pg (27-31); Mean Corpuscular Volume 93 fL (80-94); Mean Platelet Volume 8.1 fL (7.4-10.4); Platelet Count 208 10^3/uL (150-450); Red Cell Distribution Width 16 % (10-15); White Blood Count 17.5 10^3/uL (3.5-10.8)
[2021-01-03 15:02] LABS: Albumin 3.9 g/dL (3.2-5.2); Calcium 9.8 mg/dL (8.6-10.3); EGFR African American 79.1 (>60); EGFR Non-African American 65.3 (>60); Globulin 3.9 g/dL (2-4); Potassium 4.3 mmol/L (3.5-5.0); Total Bilirubin 0.5 mg/dL (0.2-1.0); Total Protein 7.8 g/dL (6.4-8.9)
[2021-01-03] MEDS ORDERED: D5NS 0.9% 1000 ml BAG 1,000 ML IV SCH (16:00)
[2021-01-03] MEDS: Cefepime 1 GM in Dextrose 1 GM/50 ML BAG IV SCH (16:44)
[2021-01-03] MEDS: NS 0.9% IV SCH ×2 (16:58→18:11)
[2021-01-03] MEDS: metroNIDAZOLE IV 500 MG/100ML 500 MG/100 ML BAG IVPB SCH (18:07)
[2021-01-03 20:08] LABS: Urine Appearance Clear; Urine Bilirubin Negative (Negative); Urine Blood Negative (Negative); Urine Color Yellow; Urine Glucose Negative (Negative); Urine Ketones Negative (Negative); Urine Nitrite Negative (Negative); Urine Protein Negative (Negative); Urine Specific Gravity 1.011 (1.002-1.030); Urine Urobilinogen Negative (Negative)
[2021-01-04] MEDS: metroNIDAZOLE IV 500 MG/100ML 500 MG/100 ML BAG IVPB SCH ×3 (01:48→19:26)
[2021-01-04] MEDS: Cefepime 1 GM in Dextrose 1 GM/50 ML BAG IV SCH ×2 (05:23→17:06)
[2021-01-04 09:10] LABS: ABS Basophils 0.1 10^3/ul (0-0.2); ABS Eosinophils 0.1 10^3/ul (0-0.6); ABS Monocytes 0.9 10^3/ul (0-0.8); ABS Neutrophils 6.2 10^3/ul (1.5-7.7); Eosinophil % 1.5 %; Hematocrit 35 % (42-52); Hemoglobin 11.8 g/dL (14.0-18.0); Lymphocyte % 21.8 %; Mean Corpuscular HGB Conc 34 g/dL (31-36); Mean Corpuscular Hemoglobin 31 pg (27-31); Mean Corpuscular Volume 93 fL (80-94); Mean Platelet Volume 7.5 fL (7.4-10.4); Platelet Count 190 10^3/uL (150-450); Red Blood Count 3.79 10^6 /uL (4.18-5.48); Red Cell Distribution Width 16 % (10-15); White Blood Count 9.3 10^3/uL (3.5-10.8)
[2021-01-04] MEDS: Heparin 5000 UNITS/ML 1 mL VIAL SUBCUT SCH ×2 (11:12→20:24)
[2021-01-04] MEDS: DARUNAVIR PO SCH (11:13)
[2021-01-04] MEDS: Bictegravir/Emtricit/Tenofov 1 TABLET PO SCH (11:13)
[2021-01-04] MEDS: COBICISTAT PO SCH (11:13)
[2021-01-05] MEDS: metroNIDAZOLE IV 500 MG/100ML 500 MG/100 ML BAG IVPB SCH ×3 (02:06→18:33)
[2021-01-05] MEDS: Cefepime 1 GM in Dextrose 1 GM/50 ML BAG IV SCH ×3 (04:55→17:23)
[2021-01-05] MEDS: DARUNAVIR PO SCH (09:49)
[2021-01-05] MEDS: COBICISTAT PO SCH (09:49)
[2021-01-05] MEDS: Bictegravir/Emtricit/Tenofov 1 TABLET PO SCH (09:49)
[2021-01-05] MEDS: Heparin 5000 UNITS/ML 1 mL VIAL SUBCUT SCH ×2 (09:50→21:26)
[2021-01-05] MEDS ORDERED: Senna TAB 8.6 mg TAB G TUBE PRN (19:20)
[2021-01-05] MEDS: Docusate LIQ 100 MG/10 ML UDC G TUBE SCH (21:26)
[2021-01-06] MEDS: metroNIDAZOLE IV 500 MG/100ML 500 MG/100 ML BAG IVPB SCH ×3 (02:17→18:18)
[2021-01-06] MEDS: Cefepime 1 GM in Dextrose 1 GM/50 ML BAG IV SCH ×2 (04:41→17:05)
[2021-01-06 06:20] LABS: ABS Basophils 0.1 10^3/ul (0-0.2); ABS Eosinophils 0.1 10^3/ul (0-0.6); ABS Lymphocytes 2.2 10^3/ul (1.0-4.8); ABS Monocytes 0.8 10^3/ul (0-0.8); Eosinophil % 1.7 %; Hematocrit 36 % (42-52); Hemoglobin 12.1 g/dL (14.0-18.0); Lymphocyte % 27.1 %; Mean Corpuscular HGB Conc 34 g/dL (31-36); Mean Corpuscular Hemoglobin 32 pg (27-31); Mean Corpuscular Volume 95 fL (80-94); Mean Platelet Volume 7.7 fL (7.4-10.4); Nucleated Red Blood Cells % 0.1; Platelet Count 201 10^3/uL (150-450); Red Blood Count 3.82 10^6 /uL (4.18-5.48); Red Cell Distribution Width 16 % (10-15); White Blood Count 8.2 10^3/uL (3.5-10.8)
[2021-01-06] MEDS: COBICISTAT PO SCH (09:43)
[2021-01-06] MEDS: DARUNAVIR PO SCH (09:43)
[2021-01-06] MEDS: Bictegravir/Emtricit/Tenofov 1 TABLET PO SCH (09:43)
[2021-01-06] MEDS: Docusate LIQ 100 MG/10 ML UDC G TUBE SCH ×2 (09:43→21:50)
[2021-01-06] MEDS: Heparin 5000 UNITS/ML 1 mL VIAL SUBCUT SCH ×2 (10:10→21:50)
[2021-01-07] MEDS: metroNIDAZOLE IV 500 MG/100ML 500 MG/100 ML BAG IVPB SCH ×3 (01:54→17:21)
[2021-01-07] MEDS: Cefepime 1 GM in Dextrose 1 GM/50 ML BAG IV SCH ×2 (05:15→16:39)
[2021-01-07] MEDS: COBICISTAT PO SCH (09:14)
[2021-01-07] MEDS: Docusate LIQ 100 MG/10 ML UDC G TUBE SCH ×2 (09:14→21:22)
[2021-01-07] MEDS: Bictegravir/Emtricit/Tenofov 1 TABLET PO SCH (09:14)
[2021-01-07] MEDS: Heparin 5000 UNITS/ML 1 mL VIAL SUBCUT SCH ×2 (09:14→21:34)
[2021-01-07] MEDS: DARUNAVIR PO SCH (09:14)
[2021-01-08] MEDS: metroNIDAZOLE IV 500 MG/100ML 500 MG/100 ML BAG IVPB SCH ×3 (02:16→17:42)
[2021-01-08] MEDS: Cefepime 1 GM in Dextrose 1 GM/50 ML BAG IV SCH ×2 (04:35→16:43)
[2021-01-08 07:14] LABS: ABS Basophils 0.1 10^3/ul (0-0.2); ABS Eosinophils 0.2 10^3/ul (0-0.6); ABS Lymphocytes 1.8 10^3/ul (1.0-4.8); ABS Monocytes 0.7 10^3/ul (0-0.8); ABS Neutrophils 4.7 10^3/ul (1.5-7.7); Eosinophil % 2.7 %; Hematocrit 37 % (42-52); Hemoglobin 12.3 g/dL (14.0-18.0); Lymphocyte % 23.8 %; Mean Corpuscular HGB Conc 33 g/dL (31-36); Mean Corpuscular Hemoglobin 31 pg (27-31); Mean Corpuscular Volume 93 fL (80-94); Platelet Count 215 10^3/uL (150-450); Red Blood Count 3.97 10^6 /uL (4.18-5.48); Red Cell Distribution Width 16 % (10-15); White Blood Count 7.4 10^3/uL (3.5-10.8)
[2021-01-08 07:27] LABS: Albumin 3.5 g/dL (3.2-5.2); Calcium 9.4 mg/dL (8.6-10.3); EGFR African American 119.5 (>60); EGFR Non-African American 98.7 (>60); Globulin 3.6 g/dL (2-4); Potassium 4.1 mmol/L (3.5-5.0); Total Bilirubin 0.3 mg/dL (0.2-1.0); Total Protein 7.1 g/dL (6.4-8.9)
[2021-01-08] MEDS: Heparin 5000 UNITS/ML 1 mL VIAL SUBCUT SCH ×2 (09:13→20:49)
[2021-01-08] MEDS: Bictegravir/Emtricit/Tenofov 1 TABLET PO SCH (09:39)
[2021-01-08] MEDS: Docusate LIQ 100 MG/10 ML UDC G TUBE SCH ×3 (09:40→20:47)
[2021-01-08] MEDS: DARUNAVIR PO SCH (09:40)
[2021-01-08] MEDS: COBICISTAT PO SCH (09:40)
[2021-01-08] MEDS ORDERED: Amoxicillin/Clavul ORALSYR 80 MG/ML (400 MG/5 ML) G TUBE SCH (23:00)
[2021-01-09] MEDS: Docusate LIQ 100 MG/10 ML UDC G TUBE SCH ×2 (08:43→21:25)
[2021-01-09] MEDS: Bictegravir/Emtricit/Tenofov 1 TABLET PO SCH (08:43)
[2021-01-09] MEDS: COBICISTAT PO SCH (08:43)
[2021-01-09] MEDS: DARUNAVIR PO SCH (08:43)
[2021-01-09] MEDS: Heparin 5000 UNITS/ML 1 mL VIAL SUBCUT SCH ×2 (08:43→21:25)
[2021-01-09] MEDS: Amoxicillin/Clavul ORALSYR 80 MG/ML (400 MG/5 ML) G TUBE SCH ×2 (10:46→21:25)
[2021-01-10 07:26] VITALS: BP 122/74
[2021-01-10] MEDS: Amoxicillin/Clavul ORALSYR 80 MG/ML (400 MG/5 ML) G TUBE SCH (11:15)
[2021-01-10] MEDS: Docusate LIQ 100 MG/10 ML UDC G TUBE SCH (11:16)
[2021-01-10] MEDS: Bictegravir/Emtricit/Tenofov 1 TABLET PO SCH (11:16)
[2021-01-10] MEDS: Heparin 5000 UNITS/ML 1 mL VIAL SUBCUT SCH (11:16)
[2021-01-10] MEDS: COBICISTAT PO SCH (11:16)
[2021-01-10] MEDS: DARUNAVIR PO SCH (11:16)
== END 2021-01-10 12:15 | DRG 58 ==
LOC: PMRU 14:53
PROVIDERS: ADMIT Physical Medicine & Rehabilitation; ATTEND Physical Medicine & Rehabilitation